=== PATIENT | female | born 1950 | race Caucasian/White ===

== ENCOUNTER 2023-10-22 17:28 | Inpatient (IN) | payer MEDICARE, OTHER ==
--- NOTE | 2023-10-22 18:08 | ED ---
Fall HPI - General Chief Complaint: Fall Stated Complaint: Hip Pain Time Seen by Provider: 10/22/23 17:55 Source: patient, EMS, RN notes reviewed, old records reviewed Mode of arrival: EMS Limitations: no limitations - History of Present Illness Initial Comments: This is a 73-year-old female to the ER after a fall patient had a trip and fall in the bathroom today. Trip and fall on blood thinners with severe left hip pain inability to ambulate and significant pain patient is a poor historian secondary to amount of pain MD Complaint: fall -: hour(s) Fall From: standing When Fall Occurred: [address] Fall Occurred: home Loss of Consciousness: none Prolonged Down Time?: no Symptoms Prior to Fall: none Location: head Location - Extremities: Left: Thigh, Knee Severity: severe Severity scale (1-10): 3 Quality: sharp Context: tripped/slipped, alcohol use Associated Symptoms: denies - Related Data Home Medications Medication Instructions Recorded Confirmed Albuterol Inhaler [Ventolin Hfa 1 - 2 puff INHALATION RT-QID PRN 10/22/23 0 10/22/23 Inhaler] Atorvastatin [Lipitor] 20 mg PO DAILY 10/22/23 10/22/23 Calcium/Magnesium(Unknown Dose) 1 tab PO HS 10/22/23 10/22/23 Cholecalciferol (Vitamin D3) 1,250 mcg PO NAVA 10/22/23 10/22/23 [Vitamin D3 (1250 Mcg = 50,000 Iu)] DULoxetine HCL [Cymbalta] 30 mg PO BID 10/22/23 10/22/23 Gabapentin 600 mg PO BID 10/22/23 10/22/23 Loratadine [Claritin] 10 mg PO DAILY 10/22/23 10/22/23 Losartan Potassium 100 mg PO DAILY 10/22/23 10/22/23 Metoprolol Succinate (ER) [Toprol 25 mg PO DAILY 10/22/23 10/22/23 XL] Pantoprazole Sodium [Protonix] 20 mg PO BID 10/22/23 10/22/23 Psyllium Husk 750mg 750 mg PO DAILY 10/22/23 10/22/23 Rivaroxaban [Xarelto] 20 mg PO HS 10/22/23 10/22/23 Ubidecarenone [Co Q-10] 400 mg PO DAILY 10/22/23 10/22/23 Vitamin B Complex 1 cap PO DAILY 10/22/23 10/22/23 Previous Rx's Medication Instructions Recorded HYDROcodone/APAP 7.5-325MG [[place] 1 - 2 tab PO Q6H PRN #32 tab 10/24/23 7.5-325] Sennosides [Senokot] 2 tab PO DAILY PRN #60 tablet 10/24/23 Benzocaine/Menthol Lozeng [Cepacol 1 each MUCOUS MEM Q4HR PRN lozenge 10/26/23 lozenge] Magnesium Hydroxide [Milk of 2,400 mg PO DAILY PRN ml 10/26/23 Magnesia] hydrALAZINE HCL [Apresoline] 25 mg PO QID PRN tab 10/26/23 Allergies Allergy/AdvReac Type Severity Reaction Status Date / Time pregabalin [From Lyrica] Allergy Rash/Hives Verified 10/22/23 21:18 Review of Systems ROS Statement: Those systems with pertinent positive or pertinent negative responses have been documented in the HPI. ROS Other: All systems not noted in ROS Statement are negative. Past Medical History Past Medical History: Atrial Fibrillation, Hyperlipidemia, Hypertension Past Surgical History: Back Surgery Additional Past Surgical History / Comment(s): lamectomy 2014 approx. thyroidectomy, bilat carpal tunnel, breast biopsy Smoking Status: Former smoker Past Alcohol Use History: Daily Past Drug Use History: None Reported - Past Family History Mother Family Medical History: Neurologic Disorder Additional Family Medical History / Comment(s): Parkinsons Father Family Medical History: Diabetes Mellitus, Hypertension General Exam General appearance: alert, in no apparent distress Head exam: Present: atraumatic, normocephalic, normal inspection Eye exam: Present: normal appearance, PERRL, EOMI. Absent: scleral icterus, conjunctival injection, periorbital swelling ENT exam: Present: normal exam, mucous membranes moist Neck exam: Present: normal inspection. Absent: tenderness, meningismus, lymphadenopathy Respiratory exam: Present: normal lung sounds bilaterally. Absent: respiratory distress, wheezes, rales, rhonchi, stridor Cardiovascular Exam: Present: regular rate, normal rhythm, normal heart sounds. Absent: systolic murmur, diastolic murmur, rubs, gallop, clicks GI/Abdominal exam: Present: soft, normal bowel sounds. Absent: distended, tenderness, guarding, rebound, rigid Extremities exam: Present: normal inspection, full ROM, normal capillary refill. Absent: tenderness, pedal edema, joint swelling, calf tenderness Back exam: Present: normal inspection Neurological exam: Present: alert, oriented X3, CN II-XII intact Psychiatric exam: Present: normal affect, normal mood Skin exam: Present: warm, dry, intact, normal color. Absent: rash Course Vital Signs 10/22/23 10/22/23 17:35 20:36 Temperature 97.9 F Pulse Rate 81 76 Respiratory 20 18 Rate Blood Pressure 164/63 176/67 O2 Sat by Pulse 97 97 Oximetry - Reevaluation(s) Reevaluation #1: 10/22/23 20:25 Records reviewed Reevaluation #2: 10/22/23 20:26 Patient symptoms are unchanged Reevaluation #3: 10/22/23 20:26 Patient informed of results questions answered Reevaluation #4: Was pt. sent in by a medical professional or institution (, PA, LOG SORTER, urgent care, hospital, or group home...) When possible be specific @ -no Did you speak to anyone other than the patient for history (EMS, parent, family, police, friend...)? What history was obtained from this source @ -no Did you review nursing and triage notes (agree or disagree)? Why? @ -agree Are old charts reviewed (outside hosp., previous admission, EMS record, old EKG, old radiological studies, urgent care reports/EKG's, group home records)? Report findings @ -yes Differential Diagnosis (chest pain, altered mental status, abdominal pain women, abdominal pain men, vaginal bleeding, weakness, fever, dyspnea, syncope, headache, dizziness, GI bleed, back pain, seizure, CVA, palpatations, mental health, musculoskeletal)? @ -prior EKG interpreted by me (3pts min.). @ -yes X-rays interpreted by me (1pt min.). @ -yes negative for acute disease CT interpreted by me (1pt min.). @ - U/S interpreted by me (1pt. min.). @ -no What testing was considered but not performed or refused? (CT, X-rays, U/S, labs)? Why? @ -none What meds were considered but not given or refused? Why? @ -none Did you discuss the management of the patient with other professionals (professionals i.e. , PA, LOG SORTER, lab, RT, psych nurse, child protective services social worker, spooling machine operator, teacher, staff air defense officer, social work case manager)? Give summary @ -no Was smoking cessation discussed for >3mins.? @ -no Was critical care preformed (if so, how long)? @ -no Were there social determinants of health that impacted care today? How? (Dany elessness, low income, unemployed, alcoholism, drug addiction, transportation, low edu. Level, literacy, decrease access to med. care, fpc, rehab)? @ -none Was there de-escalation of care discussed even if they declined (Discuss DNR or withdrawal of care, Hospice)? DNR status @ -no What co-morbidities impacted this encounter? (DM, HTN, Smoking, COPD, CAD, Cancer, CVA, ARF, Chemo, Hep., AIDS, mental health diagnosis, sleep apnea, morbid obesity)? @ -none Was patient admitted / discharged? Hospital course, mention meds given and route, prescriptions, significant lab abnormalities, going to OR and other pertinent info. @ - 73 m female will be admitted after a fall with left hip fracture. Admitted yes negative for acute disease Undiagnosed new problem with uncertain prognosis? @ -no Drug Therapy requiring intensive monitoring for toxicity (Heparin, Nitro, Insulin, Cardizem)? @ -no Were any procedures done? @ -no Diagnosis/symptom? @ -Fall with hip fracture Acute, or Chronic, or Acute on Chronic? @ -Acute Uncomplicated (without systemic symptoms) or Complicated (systemic symptoms)? @ -Complicated Side effects of treatment? @ -no Exacerbation, Progression, or Severe Exacerbation? @ -exacerbation Poses a threat to life or bodily function? How? (Chest pain, [place], [place], pneumonia, PE, COPD, DKA, ARF, appy, cholecystitis, CVA, Diverticulitis, Homicidal, Suicidal, threat to staff... and all critical care pts) @ -yes with significant fall and fracture 8 - Consultations Consultation #1: Spoke with orthopedics who agreed to admit this patient Medical Decision Making - Medical Decision Making 73 m female will be admitted after a fall with left hip fracture. - Lab Data Result diagrams: 10/26/23 06:29 10/23/23 05:57 Lab Results 10/22/23 10/22/23 10/22/23 Range/Units 18:17 18:17 18:17 WBC 11.9 H (3.8-10.6) k/uL RBC 3.85 (3.80-5.40) m/uL Hgb 12.0 (11.4-16.0) gm/dL Hct 36.7 (34.0-46.0) % MCV 95.6 (80.0-100.0) fL MCH 31.3 (25.0-35.0) pg MCHC 32.8 (31.0-37.0) g/dL RDW 12.2 (11.5-15.5) % Plt Count 267 (150-450) k/uL MPV 7.3 Neutrophils % 72 % Lymphocytes % 20 % Monocytes % 5 % Eosinophils % 3 % Basophils % 0 % Neutrophils # 8.6 H (1.3-7.7) k/uL Lymphocytes # 2.3 (1.0-4.8) k/uL Monocytes # 0.6 (0-1.0) k/uL Eosinophils # 0.3 (0-0.7) k/uL Basophils # 0.0 (0-0.2) k/uL PT 11.4 (10.0-12.5) sec INR 1.0 (<1.2) APTT 20.3 L (22.0-30.0) sec Sodium 138 (137-145) mmol/L Potassium 3.4 L (3.5-5.1) mmol/L Chloride 107 (98-107) mmol/L Carbon Dioxide 24 (22-30) mmol/L Anion Gap 7 mmol/L BUN 19 H (7-17) mg/dL Creatinine 0.53 (0.52-1.04) mg/dL Est GFR (CKD-EPI)AfAm >90 (>60 ml/min/1.73 sqM) Est GFR (CKD-EPI)NonAf >90 (>60 ml/min/1.73 sqM) Glucose 117 H (74-99) mg/dL Plasma Lactic Acid Ashok (0.7-2.0) mmol/L Calcium 8.9 (8.4-10.2) mg/dL Phosphorus 3.8 (2.5-4.5) mg/dL Magnesium 1.8 (1.6-2.3) mg/dL Total Bilirubin 0.5 (0.2-1.3) mg/dL AST 28 (14-36) U/L ALT 30 (4-34) U/L Alkaline Phosphatase 68 (38-126) U/L Troponin I (0.000-0.034) ng/mL Total Protein 6.4 (6.3-8.2) g/dL Albumin 4.0 (3.5-5.0) g/dL Serum Alcohol <10 mg/dL 10/22/23 10/22/23 Range/Units 18:17 18:17 WBC (3.8-10.6) k/uL RBC (3.80-5.40) m/uL Hgb (11.4-16.0) gm/dL Hct (34.0-46.0) % MCV (80.0-100.0) fL MCH (25.0-35.0) pg MCHC (31.0-37.0) g/dL RDW (11.5-15.5) % Plt Count (150-450) k/uL MPV Neutrophils % % Lymphocytes % % Monocytes % % Eosinophils % % Basophils % % Neutrophils # (1.3-7.7) k/uL Lymphocytes # (1.0-4.8) k/uL Monocytes # (0-1.0) k/uL Eosinophils # (0-0.7) k/uL Basophils # (0-0.2) k/uL PT (10.0-12.5) sec INR (<1.2) APTT (22.0-30.0) sec Sodium (137-145) mmol/L Potassium (3.5-5.1) mmol/L Chloride (98-107) mmol/L Carbon Dioxide (22-30) mmol/L Anion Gap mmol/L BUN (7-17) mg/dL Creatinine (0.52-1.04) mg/dL Est GFR (CKD-EPI)AfAm (>60 ml/min/1.73 sqM) Est GFR (CKD-EPI)NonAf (>60 ml/min/1.73 sqM) Glucose (74-99) mg/dL Plasma Lactic Acid Ashok 1.6 (0.7-2.0) mmol/L Calcium (8.4-10.2) mg/dL Phosphorus (2.5-4.5) mg/dL Magnesium (1.6-2.3) mg/dL Total Bilirubin (0.2-1.3) mg/dL AST (14-36) U/L ALT (4-34) U/L Alkaline Phosphatase (38-126) U/L Troponin I <0.012 (0.000-0.034) ng/mL Total Protein (6.3-8.2) g/dL Albumin (3.5-5.0) g/dL Serum Alcohol mg/dL - EKG Data -: EKG Interpreted by Me (EKG is sinus 77 AL 162 QRS 93 QTc 441) - Radiology Data Radiology results: report reviewed (CT brain C-spine chest x-ray pelvis x-ray positive for left hip fracture), image reviewed Disposition Clinical Impression: Fall, Closed left hip fracture Disposition: ADMITTED IP TO THIS [facility] Condition: Stable Is patient prescribed a controlled substance at d/c from ED?: No Time of Disposition: 19:30
[2023-10-22 18:34] LABS: Basophils % (A) 0 %; Eosinophils # (A) 0.3 k/uL (0-0.7); Eosinophils % (A) 3 %; HCT 36.7 % (34.0-46.0); Lymphocytes # (A) 2.3 k/uL (1.0-4.8); Lymphocytes % (A) 20 %; MCH 31.3 pg (25.0-35.0); MCHC 32.8 g/dL (31.0-37.0); MCV 95.6 fL (80.0-100.0); Mean Platelet Volume 7.3; Monocytes # (A) 0.6 k/uL (0-1.0); Monocytes % (A) 5 %; Neutrophils # (A) 8.6 k/uL (1.3-7.7); Neutrophils % (A) 72 %; Platelet Count 267 k/uL (150-450); RBC 3.85 m/uL (3.80-5.40); RDW 12.2 % (11.5-15.5); WBC 11.9 k/uL (3.8-10.6)
[2023-10-22] MEDS: SODIUM CHLORIDE 0.9% 500 ML 500 ML IV STA (18:45)
[2023-10-22] MEDS: HYDROmorphone 1 MG/ML 1 ML SYRINGE IVP STA (18:45)
[2023-10-22 18:46] LABS: ALT 30 U/L (4-34); AST 28 U/L (14-36); African American GFR (CKD) >90 (>60 ml/min/1.73 sqM); Alcohol <10 mg/dL; Alkaline Phosphatase 68 U/L (38-126); Anion Gap 7 mmol/L; Blood Urea Nitrogen 19 mg/dL (7-17); Calcium 8.9 mg/dL (8.4-10.2); Carbon Dioxide 24 mmol/L (22-30); Chloride 107 mmol/L (98-107); Glucose 117 mg/dL (74-99); Magnesium 1.8 mg/dL (1.6-2.3); Non-African American GFR(CKD) >90 (>60 ml/min/1.73 sqM); Phosphorus 3.8 mg/dL (2.5-4.5); Potassium 3.4 mmol/L (3.5-5.1); Sodium 138 mmol/L (137-145); Total Bilirubin 0.5 mg/dL (0.2-1.3); Total Protein 6.4 g/dL (6.3-8.2)
[2023-10-22 18:52] LABS: Prothrombin Time 11.4 sec (10.0-12.5)
[2023-10-22 18:56] LABS: Partial Thromboplastin Time 20.3 sec (22.0-30.0)
--- NOTE | 2023-10-22 20:08 | CT ---
EXAMINATION TYPE: CT brain cspine wo con CT DLP: 1458 mGycm, Automated exposure control for dose reduction was used. DATE OF EXAM: 10/22/2023 7:32 PM COMPARISON: None. CLINICAL INDICATION:Female, 73 years old with history of fall; Fall, left hip and neck pain TECHNIQUE: Brain: Multiple axial CT images of the brain were obtained without IV contrast. Cspine: Axial CT images from the skull base to the inferior aspect of T2 we obtained without intraven ous contrast. Coronal and sagittal reformatted images were also reviewed. FINDINGS: Brain: Extra-axial spaces: No abnormal extra-axial fluid collections. Ventricular system: Within normal limits Cerebral parenchyma: No acute intraparenchymal hemorrhage or mass effect. The orta-white junction is well differentiated. Cerebellum: Unremarkable. Mass effect: No evidence of midline shift. Intracranial vasculature: Atherosclerotic calcifications of the intracranial vessels. Soft tissues: Normal. Calvarium/osseous structures: No depressed skull fracture. Paranasal sinuses and mastoid air cells: Clear. Visualized orbits: Orbital contents are intact. Cervical spine: Fracture: None. Osseous structures: Multilevel degenerative disc disease changes with endplate spurring and disc oste ophyte complex's. Vertebral alignment: Within normal limits. Spinal canal/Neural Foramina: Disc osteophyte complexes at C4-C5 and C5-C6 with at least mild spinal canal stenosis. No evidence for significant neural foraminal stenosis. Neck soft tissues: Prevertebral soft tissues are within normal limits. Other: The airway is patent. The lung apices are clear. IMPRESSION: 1. No acute intracranial process. 2. No evidence of cervical spine fracture. 3. Mild multilevel degenerative disc disease.
[2023-10-22] MEDS ORDERED: NALOXONE 0.4 MG/ML 1 ML VIAL IV PRN (20:09)
--- NOTE | 2023-10-22 20:09 | XR ---
EXAMINATION TYPE: XR chest 1V portable DATE OF EXAM: 10/22/2023 7:43 PM CLINICAL INDICATION:Female, 73 years old with history of fall; [facility] COMPARISON: None TECHNIQUE: XR chest 1V portable Frontal view of the chest. FINDINGS: Lungs/Pleura: There is no evidence of pleural effusion, focal consolidation, or pneumothorax. Pulmonary vascularity: Unremarkable. Heart/mediastinum: Cardiomediastinal silhouette is unremarkable. Musculoskeletal: No acute osseous pathology. Other findings: None IMPRESSION: No acute cardiopulmonary disease/process.
--- NOTE | 2023-10-22 20:11 | XR ---
EXAMINATION TYPE: XR pelvis AP view, XR Hip Complete LT DATE OF EXAM: 10/22/2023 7:43 PM CLINICAL INDICATION:Female, 73 years old with history of fall; [facility] COMPARISON: None TECHNIQUE: The pelvis was examined in a single projection. Frontal and lateral views of the left hip. FINDINGS/IMPRESSION: 1. Acute left intertrochanteric comminuted fracture with mild displacement. 2. Severe degeneration changes of the hips bilaterally with osteophyte formation and joint space nicolás rowing.
[2023-10-22] MEDS: HYDROmorphone 1 MG/ML 1 ML SYRINGE IVP PRN (20:23)
[2023-10-22] MEDS: SODIUM CHLORIDE 0.9% 1,000 ML IV SCH (20:32)
[2023-10-22] MEDS: ONDANSETRON 4 MG/2 ML VIAL IVP PRN (21:41)
[2023-10-22] MEDS ORDERED: ALBUTEROL NEBULIZED 2.5 MG/3 ML INHALATION PRN (22:21)
[2023-10-22] MEDS: hydrALAZINE HCL 25 MG TAB PO PRN (23:06)
[2023-10-23] MEDS: PANTOPRAZOLE 40 MG TABLET PO SCH (06:16)
[2023-10-23] MEDS ORDERED: NON FORMULARY DRUG (Ubidecarenone [Co Q-10] 400 MG Capsule) PO SCH (09:00)
[2023-10-23] MEDS ORDERED: NON FORMULARY DRUG (Vitamin B Complex [Vitamin B Complex] 1 EACH Capsule) PO SCH (09:00)
--- NOTE | 2023-10-23 09:06 | P.HPOR ---
History of Present Illness H&P Date: 10/23/23 Chief Complaint: Left hip fracture s/p fall The patient is a 73-year-old female with a past medical history including A. fib, hypertension and hyperlipidemia, who presented to the emergency department after sustaining a slip and fall out of the bathtub at home yesterday. She was unable to bear weight on the left side and EMS brought her to the emergency department at [facility] for further evaluation. She was found to have a left intertrochanteric femur fracture on x-ray and she was admitted to orthopedics for further care. The patient states that she does live alone and does not use any ambulatory aids. Internal medicine has been consulted for surgical clearance. The patient does take Xarelto for A. fib and her last dose was on 10/21/2023. Review of Systems Constitutional: Denies chills, Denies fatigue, Denies fever Cardiovascular: Denies chest pain, Denies shortness of breath Respiratory: Denies cough Gastrointestinal: Denies diarrhea, Denies nausea, Denies vomiting Musculoskeletal: left: hip pain, hip stiffness, hip swelling Past Medical History Past Medical History: Atrial Fibrillation, Hyperlipidemia, Hypertension History of Any Multi-Drug Resistant Organisms: None Reported Past Surgical History: Back Surgery Additional Past Surgical History / Comment(s): lamectomy 2013 approx. thy roidectomy, bilat carpal tunnel, breast biopsy Past Anesthesia/Blood Transfusion Reactions: No Reported Reaction Past Psychological History: Anxiety, Depression Additional Psychological History / Comment(s): Changed from cymbalta to celexa- been on one week Smoking Status: Former smoker Past Alcohol Use History: Daily Past Drug Use History: None Reported - Past Family History Mother Family Medical History: Neurologic Disorder Additional Family Medical History / Comment(s): Parkinsons Father Family Medical History: Diabetes Mellitus, Hypertension Medications and Allergies Home Medications Medication Instructions Recorded Confirmed Type Albuterol Inhaler [Ventolin Hfa 1 - 2 puff INHALATION RT-QID PRN 10/22/23 10/22/23 History Inhaler] Atorvastatin [Lipitor] 20 mg PO DAILY 10/22/23 10/22/23 History Calcium/Magnesium(Unknown Dose) 1 tab PO HS 10/22/23 10/22/23 History Cholecalciferol (Vitamin D3) 1,250 mcg PO NAVA 10/22/23 10/22/23 History [Vitamin D3 (1250 Mcg = 50,000 Iu)] DULoxetine HCL [Cymbalta] 30 mg PO BID 10/22/23 10/22/23 History Gabapentin 600 mg PO BID 10/22/23 10/22/23 History Loratadine [Claritin] 10 mg PO DAILY 10/22/23 10/22/23 History Losartan Potassium 100 mg PO DAILY 10/22/23 10/22/23 History Metoprolol Succinate (ER) [Toprol 25 mg PO DAILY 10/22/23 10/22/23 History Xl] Pantoprazole Sodium [Protonix] 20 mg PO BID 10/22/23 10/22/23 History Psyllium Husk 750mg 750 mg PO DAILY 10/22/23 10/22/23 History Rivaroxaban [Xarelto] 20 mg PO HS 10/22/23 10/22/23 History Ubidecarenone [Co Q-10] 400 mg PO DAILY 10/22/23 10/22/23 History Vitamin B Complex 1 cap PO DAILY 10/22/23 10/22/23 History Allergies Allergy/AdvReac Type Severity Reaction Status Date / Time pregabalin [From Lyrica] Allergy Rash/Hives Verified 10/22/23 21:18 Physical Examination The patient is a 73 year old female that is no acute distress. She is alert and oriented x3. The patient's head is normocephalic and atraumatic. Exam of the cervical spine reveals no pain upon palpation or range of motion. Exam of the bilateral upper extremities reveal no obvious deformities or pain upon range of motion. Exam of the right lower extremity reveals no pain upon palpation. Exam of the left lower extremity reveals a externally rotated and shortened leg. No pain upon palpation to the lateral hip. There is pain upon logrolling and any range of motion of the leg. Bilateral calves are soft and nontender. Patient has good foot and ankle motion bilaterally. Neurological and circulatory status is intact. Results x-ray of the left hip and pelvis reveals a intertrochanteric femur fracture. - Labs Labs: Abnormal Lab Results - Last 24 Hours (Table) 10/22/23 10/22/23 10/22/23 Range/Units 18:17 18:17 18:17 WBC 11.9 H (3.8-10.6) k/uL Neutrophils # 8.6 H (1.3-7.7) k/uL APTT 20.3 L (22.0-30.0) sec Potassium 3.4 L (3.5-5.1) mmol/L BUN 19 H (7-17) mg/dL Glucose 117 H (74-99) mg/dL H & H 10/22/23 Range/Units 18:17 Hgb 12.0 (11.4-16.0) gm/dL Hct 36.7 (34.0-46.0) % Coagulation 10/22/23 Range/Units 18:17 INR 1.0 (<1.2) Result Diagrams: 10/22/23 18:17 10/22/23 18:17 Assessment and Plan (1) Closed left hip fracture Current Visit: Yes Status: Acute Code(s): S72.002A - FRACTURE OF UNSP PART OF NECK OF LEFT FEMUR, INIT SNOMED Code(s): 154691059 (2) Fall Current Visit: Yes Status: Acute Code(s): W19.XXXA - UNSPECIFIED FALL, INITIAL ENCOUNTER SNOMED Code(s): 8036044 (3) Atrial fibrillation Current Visit: Yes Status: Acute Code(s): I48.91 - UNSPECIFIED ATRIAL FIBRILLATION SNOMED Code(s): 50336730 (4) Hypertension Current Visit: Yes Status: Acute Code(s): I10 - ESSENTIAL (PRIMARY) HYPERTENSION SNOMED Code(s): 86869875 (5) Hyperlipidemia Current Visit: Yes Status: Acute Code(s): E78.5 - HYPERLIPIDEMIA, UNSPECIFIED SNOMED Code(s): 96070236 Plan: The clinical and x-ray findings were discussed with the patient. The case was discussed at length with Dr. Valladares. Treatment options were discussed and surgical intervention is recommended. We discussed the surgical plan as well as the expected postoperative course. Risks and benefits were reviewed including (but not limited to) the risks of infection, bleeding, blood clots, delayed or nonunion, anesthesia-related complications and possible need for additional surgery. Questions were invited and answered. The patient expressed understanding and wishes to proceed with surgery. The patient will be kept on bedrest. Continue PRN pain management. NPO today. She is scheduled for a closed reduction with insertion of cephalomedullary nail of the left hip later this afternoon. We will await pre-op clearance from internal medicine.
[2023-10-23] MEDS: LORATADINE 10 MG TAB PO SCH (09:51)
[2023-10-23] MEDS: ATORVASTATIN 20 MG TAB PO SCH (09:51)
[2023-10-23] MEDS: GABAPENTIN 300 MG CAP PO SCH (09:51)
[2023-10-23] MEDS: DULoxetine HCL 30 MG CAPSULE.DR PO SCH (09:51)
[2023-10-23] MEDS: LOSARTAN 50 MG TAB PO SCH (09:51)
[2023-10-23] MEDS: METOPROLOL SUCCINATE (ER) 25 MG TAB.ER.24H PO SCH (09:51)
[2023-10-23 10:37] LABS: HCT 32.4 % (37.2-46.3); HGB 10.5 g/dL (12.0-15.0); MCH 31.1 pg (27.0-32.0); MCHC 32.4 g/dL (32.0-37.0); MCV 95.9 FL (80.0-97.0); Mean Platelet Volume 9.8 FL (9.5-12.2); NRBC Per 100 WBC 0 X 10*3/uL (0.00-0.01); Platelet Count 239 X 10*3/uL (140-440); RBC 3.38 X 10*6/uL (4.10-5.20); RDW 12.5 % (11.5-14.5); WBC 10.84 X 10*3/uL (4.50-10.00)
[2023-10-23 10:38] LABS: Basophils # (A) 0.03 X 10*3/uL (0.00-0.10); Basophils % (A) 0.3 %; Eosinophils # (A) 0.01 X 10*3/uL (0.04-0.35); Eosinophils % (A) 0.1 %; Lymphocytes # (A) 2.14 X 10*3/uL (0.90-5.00); Lymphocytes % (A) 19.7 %; Monocytes # (A) 0.79 X 10*3/uL (0.20-1.00); Monocytes % (A) 7.3 %; Neutrophils # (A) 7.84 X 10*3/uL (1.80-7.70); Neutrophils % (A) 72.3 %
[2023-10-23 10:49] LABS: ALT 28 U/L (8-44); AST 20 U/L (13-35); Albumin 4.2 g/dL (3.8-4.9); Alkaline Phosphatase 59 U/L (41-126); BUN/Creat Ratio 28.33 Ratio (12.00-20.00); Calcium 8.7 mg/dL (8.7-10.3); Carbon Dioxide 24.1 mmol/L (21.6-31.8); Chloride 105 mmol/L (96-109); Glucose 127 mg/dL (70-110); Phosphorus 4.8 mg/dL (2.4-5.1); Potassium 4.2 mmol/L (3.5-5.5); Sodium 139 mmol/L (135-145); Total Bilirubin 0.4 mg/dL (0.3-1.2); Total Protein 6.2 g/dL (6.2-8.2)
[2023-10-23] MEDS ORDERED: HYDROmorphone 0.5 MG/0.5 ML SYRINGE IVP PRN ×2 (13:26)
[2023-10-23] MEDS ORDERED: NALOXONE 0.4 MG/ML 1 ML VIAL IV PRN (13:26)
[2023-10-23] MEDS ORDERED: MAGNESIUM HYDROXIDE 2,400 MG/30 ML CUP PO PRN (13:26)
[2023-10-23] MEDS: ONDANSETRON 4 MG/2 ML VIAL IVP PRN (13:53)
[2023-10-23] MEDS: IV FLUID CONTINUATION 1,000 ML IV ONE (13:53)
[2023-10-23] MEDS: SCOPOLAMINE 1 MG/72 HR PATCH TRANSDERM ONE (14:11)
[2023-10-23] MEDS ORDERED: TRANEXAMIC 1,000 MG/100ML-NACL 1,000 MG in SALINE 1 100ML.BAG IVPB PRN (14:29)
[2023-10-23] MEDS ORDERED: PROPOFOL 10 MG/ML 20 ML VIAL IV ONE (15:09)
[2023-10-23] MEDS ORDERED: MIDAZOLAM 2 MG/2 ML VIAL ONE (15:09)
[2023-10-23] MEDS ORDERED: fentaNYL (PF) 50 MCG/ML 2 ML AMP ONE (15:09)
[2023-10-23] MEDS ORDERED: SUCCINYLCHOLINE CHLORIDE 200 MG/10 ML VIAL IV ONE (15:09)
[2023-10-23] MEDS ORDERED: ePHEDrine 50 MG/ML 1 ML VIAL ONE (15:09)
[2023-10-23] MEDS ORDERED: ONDANSETRON 4 MG/2 ML VIAL ONE (15:09)
[2023-10-23] MEDS ORDERED: TRANEXAMIC 1,000 MG/100ML-NACL PREMIX BAG ONE (15:09)
[2023-10-23] MEDS ORDERED: LIDOCAINE 1% INJ 10MG/ML (20 ML MDV) ONE (15:09)
[2023-10-23] MEDS ORDERED: ROCURONIUM 10 MG/ML (5 ML VIAL) IV ONE (15:09)
[2023-10-23] MEDS ORDERED: NEOSTIGMINE 1 MG/ML 10 ML VIAL ONE (15:09)
[2023-10-23] MEDS ORDERED: GLYCOPYRROLATE 0.2 MG/ML 2 ML VIAL ONE (15:09)
[2023-10-23] MEDS ORDERED: DEXAMETHASONE SOD PHOSPHATE 4 MG/ML 1 ML VIAL ONE (15:09)
[2023-10-23] MEDS: SODIUM CHLORIDE 0.9% 50 ML with ceFAZolin 2,000 MG IV ONE (15:13)
[2023-10-23] MEDS: LACTATED RINGERS 1,000 ML IV ONE (16:04)
--- NOTE | 2023-10-23 16:18 | P.OP ---
Date of Procedure: 10/23/23 Preoperative Diagnosis: Four-part displaced intertrochanteric fracture left hip Postoperative Diagnosis: four-part intertrochanteric fracture left hip Procedure(s) Performed: closed reduction and intramedullary nailing left intratrochanteric hip fracture Implants: [employer] Intertan nail 125, 11.5 mm x 18 cm. [employer] Intertan integrated-interlocking lag screw, 100 mm lag screw, 95 mm compression screw. [employer] L-P screw, 5.0 mm x 35 mm. Anesthesia: GETA Surgeon: Pierre Barclay Estimated Blood Loss (ml): 100 Pathology: none sent Condition: stable Disposition: PACU Indications for Procedure: this is a 73-year-old female who sustained a ground-level fall at home. X-rays demonstrated a displaced 4 part intratrochanteric fracture of the left hip. After discussing the surgical and nonsurgical treatment options at length with her, I recommended a close reduction and intramedullary nailing of the left hip. Informed consent was obtained. Operative Findings: the operative findings are consistent with a displaced 4 part intratrochanteric fracture of the left hip Description of Procedure: The patient was seen in the preoperative area, consent was reviewed, and the operative site was marked with a skin marker. The surgical procedure was discussed at length with both the patient and the family at the bedside. All questions were answered to the best of my ability. The patient was brought to the operating room and placed on the fracture table. Anesthesia was administered by the anesthesia department. 2 g of Ancef were administered intravenously. The patient was placed supine on the fracture table with the fractured extremity in traction boot. The other extremity was placed in a well leg rocha and the bony prominences were well padded. A universal timeout was then performed which confirmed the patient's name, surgical site, ALLERGIES, and consent. Fracture reduction was performed with a traction and abduction maneuver which was confirmed with fluoroscopy, both AP and lateral views.. After reduction was performed, the extremity was then prepped with ChloraPrep solution and draped in the usual sterile fashion. Utilizing fluoroscopy to identify the tip of the greater trochanter, a 3 cm longitudinal incision was made just proximal to the greater trochanter. Incision was carried through the fascia to the tip of the greater trochanter. Utilizing a curved awl, the entry point was created at the tip of the greater trochanter and centralized in the AP and lateral planes. These locations were confirmed by fluoroscopy. A guidewire was then inserted down the medullary canal. Sequentially reaming of the femur was performed to 13 mm distally and 17 mm proximally with the channel reamer. After reaming, appropriate size nail was inserted over the guidewire. The nail was inserted to the appropriate depth and the guidewire was removed. Placement of the gabino was confirmed with both AP and lateral fluoroscopic views. The lag screw drill sleeve was placed in the jig and a small skin incision was made on the lateral aspect of the leg and the lag screw drill sleeve was locked into the guide. The 3.2 mm guide pin sleeve was inserted through the lag screw drill sleeve down to bone. A 3.2 mm distally threaded guidewire was inserted through the guide pin sleeve. The guidewire was inserted in the desired position in the femoral head, both anterior and posterior. The lag screw length cage was inserted over the guidepin to the back of the lag screw drill sleeve. Lag screw length was then measured from the cage. Next, the 7.0 mm compression screw starter drill was inserted in the lag screw drill sleeve beneath the guidepin. The compression screw starter drill was advanced under power until it abutted the back and of the lag screw drill sleeve. The 7.0 mm compression screw drill was inserted through the lag screw drill sleeve into the hole created by the compression screw starter drill. This was advanced under fluoroscopy to a depth 5 mm less and the measurement taken for the guidepin. The compression screw drill was removed and the antirotation bar was inserted into the same hole. The 3.2 mm guide pin sleeve was then removed from the drill guide. The lag screw drill was then inserted to a depth that was measured by the lag screw gauge. This was done under fluoroscopy. The lag screw was inserted over the guidewire to the appropriate depth using fluoroscopy. Traction was then released. The antirotation bar was then removed and the compression screw was advanced through the lag screw drill sleeve beneath the lag screw. This was advanced to the appropriate compression was achieved. The proximal drill guide was then removed and the distal drill guide was then inserted in the jig. Skin incision was made down to bone and the distal drill guide was then placed. Distal hole was then drilled with a 4.0 mm drill and measured to the appropriate depth. Distal screw was then placed. The entire assembly was then removed and final fluoroscopic x-rays were obtained. The wounds were then irrigated copiously with saline solution. Fascia was closed with 0-Vicryl. Subcutaneous tissues were closed with 2-0 Vicryl and the skin was closed with ramon. Sterile dressings were applied. The patient was transported to the recovery room in stable condition.
[2023-10-23] MEDS: HYDROmorphone 0.5 MG/0.5 ML SYRINGE IVP ONE ×4 (16:37→16:59)
--- NOTE | 2023-10-23 17:25 | FL ---
EXAMINATION TYPE: FL guidance operating room, XR Hip Limited LT Intraoperative/procedural fluoroscopi c services were provided. Total fluoroscopy time is 58 seconds with a total of 2 submitted images to PACS. Please see the operative/procedural note for further details. DAP: 7.8355 Gycm2
--- NOTE | 2023-10-23 17:42 | XR ---
EXAMINATION TYPE: XR Hip Limited LT DATE OF EXAM: 10/23/2023 Comparison: None Clinical History: 73-year-old female Status post hip surgery, assess surgical alignment Findings: Interval placement of a retrograde intramedullary nail with screw fixation. Displaced fragment of the lesser trochanter measuring 4.2 cm. Alignment is anatomic. Soft tissue air related to recent operati on. Mild degenerative spurring at the left hip. Lateral hip skin ramon. Impression: Uncomplicated postoperative appearance proximal left femur IT fracture fixation.
[2023-10-23] MEDS: SODIUM CHLORIDE 0.9% 1,000 ML IV SCH (17:56)
[2023-10-23] MEDS ORDERED: MAGNESIUM PO SCH (21:00)
[2023-10-23] MEDS ORDERED: CALCIUM PO SCH (21:00)
[2023-10-23] MEDS: SENNOSIDES-DOCUSATE SODIUM 1 EACH TAB PO SCH (21:20)
[2023-10-23] MEDS: HYDROcodone/APAP 7.5-325MG 1 EACH TAB PO PRN (22:33)
[2023-10-23] MEDS: BENZOCAINE/MENTHOL LOZENG 1 EACH LOZENGE MUCOUS MEM PRN (22:34)
[2023-10-24] MEDS: HYDROmorphone 0.5 MG/0.5 ML SYRINGE IVP PRN (01:14)
--- NOTE | 2023-10-24 06:47 | P.CONS ---
History of Present Illness - Reason for Consult Consult date: 10/22/23 - Chief Complaint Left hip fracture post fall. 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 No other visual injury at the time can be seen she is on anticoagulation for A-fib with no major hematoma or bleed. Ended up coming to the emergency department where was seen and evaluated with her full study including head and cervical spine CT shows no acute intracranial process no evidence of cervical spine fracture but mild multilevel degenerative disc disease. Chest x-ray shows no acute cardiopu lmonary disease or process at the time, x-ray of the hip shows acute left intratrochanteric communicated fracture with mild displacement and severe degenerative change of the hip bilaterally with osteophyte formation and joint space narrowing. Patient apparently was admitted to Dr. Valladares service will be seen by orthopedic for possible surgery she is on active anticoagulation which will be held for the next 24 hours before able to go for surgery. REVIEW OF SYSTEMS: CONSTITUTIONAL: Well-developed no acute respiratory distress. EYES: No icterus sclerae, no conjunctivitis. EARS, NOSE, MOUTH, THROAT, and FACE: No sore throat, lymphadenopathy, carotid bruits or deformity. RESPIRATORY: Mild shortness of breath no cough or wheezes. CARDIOVASCULAR: Positive PND orthopnea palpitation. GASTROINTESTINAL: No Abd pain, Nausea or vomiting, no Diarrhea or constipation, No GI Bleed, no distention or masses. GENITOURINARY: Negative for Hematuria or UTI, no kidney stones. INTEGUMENT/BREAST: Generalized arthralgia and myalgia. HEMATOLOGIC/LYMPHATIC: Negative for bleed or purpura. MUSCULOSKELTAL: Positive for arthritis. Left hip has external rotation and significant pain and discomfort. NEURLOGICAL: No LOC, Sz or syncope, blurred vision dizziness or abnormality.. BEHAVIORAL/PSYCH: Negative. ENDOCRINE: Negative. PHYSICAL EXAMINATION: General Appearance: Alert, cooperative, no distress, appears stated age. Neck HEENT: Supple, no lymphadenopathy, no thyroid enlargement, no carotid bruits. Lungs: Decreased breath sound bilaterally with fine rhonchi no crackles or wheezes. Chest Wall: Decreased with deep inspiration no tenderness and no deformity was found on exam, no costochondral pain or discomfort. Heart: Regular rate and rhythm, S1, S2, positive S3 no JVD. Normal, no murmur, rub or gallop. Back: Symmetric, no curvature, ROM normal, no CVA tenderness. Abdomen: Soft, non-tender, bowel sounds active all four quadrants, no masses, no organomegaly. Extremities: Generalized arthralgia all over left hip has significant external rotation shorter leg compared to the other side significant pain and discomfort in the groin area. Pulses: 2+ and symmetric. Skin: Skin color, texture, tugor normal, no rashes or lesions. Neurologic: Alert oriented x3 cranial nerves II through XII intact, no motor deficit, no abnormal balance or gait. ASSESSMENT AND PLAN: _Left hip fracture post fall: Patient will require surgery without ORIF for hemiarthroplasty to be determined by Ortho, she is on anticoagulation need to be off 48 hours before able to go for surgery. Status of her EKG looks perfectly fine at this point patient has no absolute contraindication for surgery resume her metoprolol and losartan. _History of A-fib she is not in active A-fib with her current EKG but remain on metoprolol and Xarelto 20 mg a day resume medication. _Hypertension: Continue hydralazine 25 mg every 6 hours as needed for systolic above 160 continue losartan 100 mg daily and Toprol-XL 25 mg a day. _Hyperlipidemia: Continue Lipitor 20 mg a day. _Chronic depression has been on Cymbalta 30 mg twice a day. _Hyperlipidemia: Resume atorvastatin 20 mg a day. _Chronic neuropathy: Has been on gabapentin 600 mg twice a day. _Mild electrolyte imbalance with mild hypokalemia replacement therapy will be done. _Hyperglycemia with no official diagnosis of diabetes Accu-Chek with sliding scales will be done. _Mild COPD/reactive airway: Still on rescue inhaler will continue updraft treatment and O2 on as-needed basis. _DVT prophylaxis: Patient will continue on Xarelto. _GI prophylaxis: Patient be on PPI daily. CODE STATUS: Full code. Dr. Valladares thank you much for the consult more than happy to see this patient along with you in the hospital if I can be any further help to please let me know. Past Medical History Past Medical History: Atrial Fibrillation, Hyperlipidemia, Hypertension History of Any Multi-Drug Resistant Organisms: None Reported Past Surgical History: Back Surgery Additional Past Surgical History / Comment(s): lamectomy 2014 approx. thyroidectomy, bilat carpal tunnel, breast biopsy Past Anesthesia/Blood Transfusion Reactions: No Reported Reaction Past Psychological History: Anxiety, Depression Additional Psychological History / Comment(s): Changed from cymbalta to celexa- been on one week Smoking Status: Former smoker Past Alcohol Use History: Daily Past Drug Use History: None Reported - Past Family History Mother Family Medical History: Neurologic Disorder Additional Family Medical History / Comment(s): Parkinsons Father Family Medical History: Diabetes Mellitus, Hypertension Medications and Allergies Home Medications Medication Instructions Recorded Confirmed Type Albuterol Inhaler [Ventolin Hfa 1 - 2 puff INHALATION RT-QID PRN 10/22/23 10/22/23 History Inhaler] Atorvastatin [Lipitor] 20 mg PO DAILY 10/22/23 10/22/23 History Calcium/Magnesium(Unknown Dose) 1 tab PO HS 10/22/23 10/22/23 History Cholecalciferol (Vitamin D3) 1,250 mcg PO NAVA 10/22/23 10/22/23 History [Vitamin D3 (1250 Mcg = 50,000 Iu)] DULoxetine HCL [Cymbalta] 30 mg PO BID 10/22/23 10/22/23 History Gabapentin 600 mg PO BID 10/22/23 10/22/23 History Loratadine [Claritin] 10 mg PO DAILY 10/22/23 10/22/23 History Losartan Potassium 100 mg PO DAILY 10/22/23 10/22/23 History Metoprolol Succinate (ER) [Toprol 25 mg PO DAILY 10/22/23 10/22/23 History Xl] Pantoprazole Sodium [Protonix] 20 mg PO BID 10/22/23 10/22/23 History Psyllium Husk 750mg 750 mg PO DAILY 10/22/23 10/22/23 History Rivaroxaban [Xarelto] 20 mg PO HS 10/22/23 10/22/23 History Ubidecarenone [Co Q-10] 400 mg PO DAILY 10/22/23 10/22/23 History Vitamin B Complex 1 cap PO DAILY 10/22/23 10/22/23 History Allergies Allergy/AdvReac Type Severity Reaction Status Date / Time pregabalin [From Lyrica] Allergy Rash/Hives Verified 10/22/23 21:18 Physical Exam Vitals: Vital Signs Temp Pulse Resp BP Pulse Ox 10/22/23 20:36 76 18 176/67 97 10/22/23 17:35 97.9 F 81 20 164/63 97 Intake and Output 10/22/23 10/22/23 10/23/23 14:59 22:59 06:59 Other: Weight 81.647 kg Results CBC & Chem 7: 10/22/23 18:17 10/22/23 18:17 Labs: Abnormal Lab Results - Last 24 Hours (Table) 10/22/23 10/22/23 10/22/23 Range/Units 18:17 18:17 18:17 WBC 11.9 H (3.8-10.6) k/uL Neutrophils # 8.6 H (1.3-7.7) k/uL APTT 20.3 L (22.0-30.0) sec Potassium 3.4 L (3.5-5.1) mmol/L BUN 19 H (7-17) mg/dL Glucose 117 H (74-99) mg/dL
--- NOTE | 2023-10-24 09:48 | P.PN ---
Subjective Progress Note Date: 10/24/23 This is a 73-year-old fe male who is status post closed reduction and intramedullary nailing of left intertrochanteric hip fracture. This is postoperative day #1 and patient is seen and evaluated at bedside with Dr. Pierre Barclay. Patient states that she is quite painful today and has not been able to work with physical therapy yet. Objective - Vital Signs Vital signs: Vital Signs Temp 98.2 F 10/24/23 01:12 Pulse 87 10/24/23 01:12 Resp 16 10/24/23 01:12 BP 140/49 10/24/23 01:12 Pulse Ox 99 10/24/23 01:12 FiO2 Intake & Output 10/23/23 10/24/23 10/24/23 18:59 06:59 18:59 Intake Total 1050 Output Total 435 1350 Balance 615 -1350 Intake: IV 1050 Output: Urine 335 1350 Uretheral (Posadas) 1350 Estimated Blood Loss 100 Other: Voiding Method Indwelling Catheter Indwelling Catheter - Exam Vital signs are stable. Patient is in no acute distress and is alert and oriented 3. Calf is soft and nontender to palpation. Dressing is clean, dry, and intact. Patient has full foot and ankle motion without pain or difficulty. Sensation intact. Neurovascular status and circulatory status are intact. - Labs CBC & Chem 7: 10/23/23 05:57 10/23/23 05:57 Labs: Abnormal Lab Results - Last 24 Hours (Table) 10/23/23 10/23/23 Range/Units 05:57 05:57 WBC 10.84 H (4.50-10.00) X 10*3/uL RBC 3.38 L (4.10-5.20) X 10*6/uL Hgb 10.5 L (12.0-15.0) g/dL Hct 32.4 L (37.2-46.3) % Neutrophils # 7.84 H (1.80-7.70) X 10*3/uL Eosinophils # 0.01 L (0.04-0.35) X 10*3/uL BUN/Creatinine Ratio 28.33 H (12.00-20.00) Ratio Glucose 127 H (70-110) mg/dL Assessment and Plan Assessment: Status post closed reduction and intramedullary nailing of left intertrochanteric hip fracture. (1) Intertrochanteric fracture of left hip Current Visit: Yes Status: Acute Code(s): S72.142A - DISPLACED INTERTROCHANTERIC FRACTURE OF LEFT FEMUR, INIT SNOMED Code(s): 258359084 Plan: Continue routine postop care and pain control. Continue anticoagulation with Xarelto. Weightbearing as tolerated with a walker. Leave dressing in place for 7 days. Appreciate input from internal medicine. Anticipate discharge to ECF in the next 24-48 hours.
[2023-10-24 10:27] LABS: HCT 27.1 % (37.2-46.3); HGB 8.7 g/dL (12.0-15.0); MCH 31.2 pg (27.0-32.0); MCHC 32.1 g/dL (32.0-37.0); MCV 97.1 FL (80.0-97.0); Mean Platelet Volume 9.8 FL (9.5-12.2); NRBC Per 100 WBC 0 X 10*3/uL (0.00-0.01); Platelet Count 206 X 10*3/uL (140-440); RBC 2.79 X 10*6/uL (4.10-5.20); RDW 12.7 % (11.5-14.5); WBC 10.33 X 10*3/uL (4.50-10.00)
[2023-10-24 10:28] LABS: Basophils # (A) 0.01 X 10*3/uL (0.00-0.10); Basophils % (A) 0.1 %; Eosinophils # (A) 0 X 10*3/uL (0.04-0.35); Eosinophils % (A) 0 %; Lymphocytes # (A) 1.82 X 10*3/uL (0.90-5.00); Lymphocytes % (A) 17.6 %; Monocytes # (A) 1.06 X 10*3/uL (0.20-1.00); Monocytes % (A) 10.3 %; Neutrophils # (A) 7.41 X 10*3/uL (1.80-7.70); Neutrophils % (A) 71.7 %
[2023-10-24] MEDS: HYDROcodone/APAP 7.5-325MG 1 EACH TAB PO PRN (10:33)
[2023-10-24] MEDS: RIVAROXABAN 20 MG TAB PO SCH (20:19)
--- NOTE | 2023-10-25 06:13 | P.PN ---
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 No other visual injury at the time can be seen she is on anticoagulation for A-fib with no major hematoma or bleed. Ended up coming to the emergency department where was seen and evaluated with her full study including head and cervical spine CT shows no acute intracranial process no evidence of cervical spine fracture but mild multilevel degenerative disc disease. Chest x-ray shows no acute cardiopulmonary disease or process at the time, x-ray of the hip shows acute left intratrochanteric communicated fracture with mild displacement and severe degenerative change of the hip bilaterally with osteophyte formation and joint space narrowing. Patient apparently was admitted to Dr. Valladares service will be seen by orthopedic for possible surgery she is on active anticoagulation which will be held for the next 24 hours before able to go for surgery. 10/24/2023: She is lying in bed in quite the pain still have Posadas catheter and she had ORIF of the hip with Dr. Barclay procedure seems to go well but patient is not quite with pain currently. Has low-grade anemia after surgery with hemoglobin down to 8.7 does not require any transfusion electrolytes still with no abnormality. Hopefully will titrate physical therapy gradually or close allowing her to put full pressure on the hip after her nailing of left intertrochanteric fracture which she does do well with physical therapy continue pain management continue anticoagulation with Xarelto. Patient possibly expected to go to SNF in the next day or 2. REVIEW OF SYSTEMS: CONSTITUTIONAL: Well-developed no acute respiratory distress. EYES: No icterus sclerae, no conjunctivitis. EARS, NOSE, MOUTH, THROAT, and FACE: No sore throat, lymphadenopathy, carotid bruits or deformity. RESPIRATORY: Mild shortness of breath no cough or wheezes. CARDIOVASCULAR: Positive PND orthopnea palpitation. GASTROINTESTINAL: No Abd pain, Nausea or vomiting, no Diarrhea or constipation, No GI Bleed, no distention or masses. GENITOURINARY: Negative for Hematuria or UTI, no kidney stones. INTEGUMENT/BREAST: Generalized arthralgia and myalgia. HEMATOLOGIC/LYMPHATIC: Negative for bleed or purpura. MUSCULOSKELTAL: Positive for arthritis. Left hip has external rotation and significant pain and discomfort. NEURLOGICAL: No LOC, Sz or syncope, blurred vision dizziness or abnormality.. BEHAVIORAL/PSYCH: Negative. ENDOCRINE: Negative. PHYSICAL EXAMINATION: General Appearance: Alert, cooperative, no distress, appears stated age. Neck HEENT: Supple, no lymphadenopathy, no thyroid enlargement, no carotid bruits. Lungs: Decreased breath sound bilaterally with fine rhonchi no crackles or wheezes. Chest Wall: Decreased with deep inspiration no tenderness and no deformity was found on exam, no costochondral pain or discomfort. Heart: Regular rate and rhythm, S1, S2, positive S3 no JVD. Normal, no murmur, rub or gallop. Back: Symmetric, no curvature, ROM normal, no CVA tenderness. Abdomen: Soft, non-tender, bowel sounds active all four quadrants, no masses, no organomegaly. Extremities: Generalized arthralgia all over left hip has significant external r otation shorter leg compared to the other side significant pain and discomfort in the groin area. Pulses: 2+ and symmetric. Skin: Skin color, texture, tugor normal, no rashes or lesions. Neurologic: Alert oriented x3 cranial nerves II through XII intact, no motor deficit, no abnormal balance or gait. ASSESSMENT AND PLAN: _Left hip fracture post fall: Post ORIF with nailing of the left intertrochanteric fracture seems to do well so far except her pain. _History of A-fib she is not in active A-fib with her current EKG but remain on metoprolol and Xarelto 20 mg a day resume medication. _Hypertension: Blood pressure is well-controlled continue losartan and Toprol-XL . _Pain management: Continue hydrocodone and try to avoid hydromorphone. _Hyperlipidemia: Continue Lipitor 20 mg a day. _Chronic depression has been on Cymbalta 30 mg twice a day. _Hyperlipidemia: Resume atorvastatin 20 mg a day. _Chronic neuropathy: Has been on gabapentin 600 mg twice a day. _Mild electrolyte imbalance with mild hypokalemia replacement therapy will be done. _Hyperglycemia with no official diagnosis of diabetes Accu-Chek with sliding scales will be done. _Mild COPD/reactive airway: Still on rescue inhaler will continue updraft treatment and O2 on as-needed basis. _DVT prophylaxis: Patient will continue on Xarelto. _Mobility titrate physical therapy remove Posadas catheter and hopefully patient up with help and prepare hopefully for ECF or SNF in the next 24 hours. Objective - Vital Signs Vital signs: Vital Signs Temp 98.2 F 10/24/23 01:12 Pulse 87 10/24/23 01:12 Resp 16 10/24/23 01:12 BP 140/49 10/24/23 01:12 Pulse Ox 99 10/24/23 01:12 FiO2 Intake & Output 10/23/23 10/23/23 10/24/23 06:59 18:59 06:59 Intake Total 1050 Output Total 958 211 0304 Balance -350 615 -1350 Weight 81.647 kg Intake: IV 1050 Output: Urine 521 704 8815 Uretheral (Posadas) 1350 Estimated Blood Loss 100 Other: Voiding Method Indwelling Catheter Indwelling Catheter - Labs CBC & Chem 7: 10/24/23 06:04 10/23/23 05:57 Labs: Abnormal Lab Results - Last 24 Hours (Table) 10/23/23 10/23/23 Range/Units 05:57 05:57 WBC 10.84 H (4.50-10.00) X 10*3/uL RBC 3.38 L (4.10-5.20) X 10*6/uL Hgb 10.5 L (12.0-15.0) g/dL Hct 32.4 L (37.2-46.3) % Neutrophils # 7.84 H (1.80-7.70) X 10*3/uL Eosinophils # 0.01 L (0.04-0.35) X 10*3/uL BUN/Creatinine Ratio 28.33 H (12.00-20.00) Ratio Glucose 127 H (70-110) mg/dL
--- NOTE | 2023-10-25 07:35 | P.PN ---
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 No other visual injury at the time can be seen she is on anticoagulation for A-fib with no major hematoma or bleed. Ended up coming to the emergency department where was seen and evaluated with her full study including head and cervical spine CT shows no acute intracranial process no evidence of cervical spine fracture but mild multilevel degenerative disc disease. Chest x-ray shows no acute cardiopulmonary disease or process at the time, x-ray of the hip shows acute left intratrochanteric communicated fracture with mild displacement and severe degenerative change of the hip bilaterally with osteophyte formation and joint space narrowing. Patient apparently was admitted to Dr. Valladares service will be seen by orthopedic for possible surgery she is on active anticoagulation which will be held for the next 24 hours before able to go for surgery. 10/24/2023: She is lying in bed in quite the pain still have Posadas catheter and she had ORIF of the hip with Dr. Barclay procedure seems to go well but patient is not quite with pain currently. Has low-grade anemia after surgery with hemoglobin down to 8.7 does not require any transfusion electrolytes still with no abnormality. Hopefully will titrate physical therapy gradually or close allowing her to put full pressure on the hip after her nailing of left intertrochanteric fracture which she does do well with physical therapy continue pain management continue anticoagulation with Xarelto. Patient possibly expected to go to SNF in the next day or 2. 10/25/2023: Patient is doing very well she has done some physical therapy, able to ambulate with a walker still having quite the pain. Patient does live home alone a consult for physiatry at [facility] to do inpatient rehab in progress if that fails patient will be possibly going to SNF with rehab. Otherwise she is doing well hemodynamically stable no chest pain or angina, vitals are pretty normal her white blood cell is normal hemoglobin dropped down slight bit but does not require transfusion. Pain is well-managed currently with hydrocodone. Expected probably discharge today. REVIEW OF SYSTEMS: CONSTITUTIONAL: Well-developed no acute respiratory distress. EYES: No icterus sclerae, no conjunctivitis. EARS, NOSE, MOUTH, THROAT, and FACE: No sore throat, lymphadenopathy, carotid bruits or deformity. RESPIRATORY: Mild shortness of breath no cough or wheezes. CARDIOVASCULAR: Positive PND orthopnea palpitation. GASTROINTESTINAL: No Abd pain, Nausea or vomiting, no Diarrhea or constipation, No GI Bleed, no distention or masses. GENITOURINARY: Negative for Hematuria or UTI, no kidney stones. INTEGUMENT/BREAST: Generalized arthralgia and myalgia. HEMATOLOGIC/LYMPHATIC: Negative for bleed or purpura. MUSCULOSKELTAL: Positive for arthritis. Left hip has external rotation and significant pain and discomfort. NEURLOGICAL: No LOC, Sz or syncope, blurred vision dizziness or abnormality.. BEHAVIORAL/PSYCH: Negative. ENDOCRINE: Negative. PHYSICAL EXAMINATION: General Appearance: Alert, cooperative, no distress, appears stated age. Neck HEENT: Supple, no lymphadenopathy, no thyroid enlargement, no carotid bruits. Lungs: Decreased breath sound bilaterally with fine rhonchi no crackles or wheezes. Chest Wall: Decreased with deep inspiration no tenderness and no deformity was found on exam, no costochondral pain or discomfort. Heart: Regular rate and rhythm, S1, S2, positive S3 no JVD. Normal, no murmur, rub or gallop. Back: Symmetric, no curvature, ROM normal, no CVA tenderness. Abdomen: Soft, non-tender, bowel sounds active all four quadrants, no masses, no organomegaly. Extremities: Generalized arthralgia all over left hip has significant external rotation shorter leg compared to the other side significant pain and discomfort in the groin area. Pulses: 2+ and symmetric. Skin: Skin color, texture, tugor normal, no rashes or lesions. Neurologic: Alert oriented x3 cranial nerves II through XII intact, no motor deficit, no abnormal balance or gait. ASSESSMENT AND PLAN: _Left hip fracture post fall: Post ORIF with nailing of the left intertrochanteric fracture seems to do well so far except her pain. Titrate physical therapy with either physiatry inpatient rehab or SNF. _History of A-fib she is not in active A-fib with her current EKG but remain on metoprolol and Xarelto 20 mg a day resume medication. Pulse rate is well-c ontrolled. _Hypertension: Blood pressure is well-controlled continue losartan and Toprol- XL. Blood pressure running in the 120-100 30s systolic. _Pain management: Continue hydrocodone and try to avoid hydromorphone. Avoid ibuprofen with her hydrocodone can use acetaminophen as needed. _Hyperlipidemia: Continue Lipitor 20 mg a day. _Chronic depression has been on Cymbalta 30 mg twice a day. _Hyperlipidemia: Resume atorvastatin 20 mg a day. _Chronic neuropathy: Has been on gabapentin 600 mg twice a day. _Mild electrolyte imbalance with mild hypokalemia replacement therapy will be done. _Hyperglycemia with no official diagnosis of diabetes Accu-Chek with sliding scales will be done. _Mild COPD/reactive airway: Still on rescue inhaler will continue updraft treatment and O2 on as-needed basis. _DVT prophylaxis: Patient will continue on Xarelto. _Prognosis: Very good. Discharge expectation: Patient be doing more physical therapy today and probably will be going to either inpatient rehab or alf rehab today. Objective - Vital Signs Vital signs: Vital Signs Temp 98.3 F 10/25/23 01:55 Pulse 99 10/25/23 01:55 Resp 17 10/25/23 01:55 BP 121/53 10/25/23 01:55 Pulse Ox 95 10/25/23 01:55 FiO2 Intake & Output 10/24/23 10/24/23 10/25/23 06:59 18:59 06:59 Output Total 1350 3460 Balance -1350 -3460 Output: Urine 1350 3460 Uretheral (Posadas) 1350 Other: Voiding Method Indwelling Catheter Indwelling Catheter # Voids 2 - Labs CBC & Chem 7: 10/24/23 06:04 10/23/23 05:57 Labs: Abnormal Lab Results - Last 24 Hours (Table) 10/24/23 Range/Units 06:04 WBC 10.33 H (4.50-10.00) X 10*3/uL RBC 2.79 L (4.10-5.20) X 10*6/uL Hgb 8.7 L (12.0-15.0) g/dL Hct 27.1 L (37.2-46.3) % MCV 97.1 H (80.0-97.0) FL Monocytes # 1.06 H (0.20-1.00) X 10*3/uL Eosinophils # 0 L (0.04-0.35) X 10*3/uL
[2023-10-25] MEDS: HYDROcodone/APAP 7.5-325MG 1 EACH TAB PO PRN (11:20)
--- NOTE | 2023-10-25 14:16 | P.PN ---
Subjective Progress Note Date: 10/25/23 This is a 73-year-old fe male who is status post closed reduction and intramedullary nailing of left intertrochanteric hip fracture. This is postoperative day #2 and patient is seen and evaluated at bedside today. Patient states that she is still painful, but has been able to work with [employer]. Patient denies any new complaints today. Objective - Vital Signs Vital signs: Vital Signs Temp 98.4 F 10/25/23 07:16 Pulse 92 10/25/23 11:37 Resp 18 10/25/23 11:37 BP 142/66 10/25/23 07:16 Pulse Ox 95 10/25/23 07:16 FiO2 Intake & Output 10/24/23 10/25/23 10/25/23 18:59 06:59 18:59 Intake Total 550 Output Total 3460 Balance -3460 550 Intake: Oral 550 Output: Urine 3460 Other: Voiding Method Indwelling Catheter Indwelling Catheter # Voids 2 - Exam Vital signs are stable. Patient is in no acute distress and is alert and oriented 3. Calf is soft and nontender to palpation. Dressing is clean, dry, and intact. Patient has full foot and ankle motion without pain or difficulty. Sensation intact. Neurovascular status and circulatory status are intact. - Labs CBC & Chem 7: 10/24/23 06:04 10/23/23 05:57 Assessment and Plan Assessment: Status post closed reduction and intramedullary nailing of left intertrochanteric hip fracture. (1) Intertrochanteric fracture of left hip Current Visit: Yes Status: Acute Code(s): S72.142A - DISPLACED INTERTROCHANTERIC FRACTURE OF LEFT FEMUR, INIT SNOMED Code(s): 207108886 Plan: Continue routine postop care and pain control. Continue anticoagulation with Xarelto. Weightbearing as tolerated with a walker. Leave dressing in place for 7 days. Appreciate input from internal medicine. Anticipate discharge to [facility] tomorrow.
[2023-10-26 09:31] VITALS: BP 143/67; PULSE 96; RESP 16; TEMP 99.5
--- NOTE | 2023-10-26 10:10 | XR ---
EXAMINATION TYPE: XR chest 1V portable DATE OF EXAM: 10/26/2023 9:56 AM CLINICAL INDICATION:Female, 73 years old with history of cough; [facility] COMPARISON: Chest radiographs from TECHNIQUE: XR chest 1V portable Frontal view of the chest. FINDINGS: Lungs/Pleura: Right midlung streaky atelectasis. There is no evidence of pleural effusion, focal cons olidation, or pneumothorax. Pulmonary vascularity: Unremarkable. Heart/mediastinum: Cardiomediastinal silhouette is unremarkable. Musculoskeletal: No acute osseous pathology. IMPRESSION: No acute cardiopulmonary disease/process.
[2023-10-26 10:22] LABS: Basophils # (A) 0.03 X 10*3/uL (0.00-0.10); Basophils % (A) 0.4 %; Eosinophils # (A) 0.38 X 10*3/uL (0.04-0.35); Eosinophils % (A) 4.5 %; HCT 26.9 % (37.2-46.3); HGB 8.7 g/dL (12.0-15.0); Lymphocytes # (A) 2.36 X 10*3/uL (0.90-5.00); Lymphocytes % (A) 27.8 %; MCH 31.3 pg (27.0-32.0); MCHC 32.3 g/dL (32.0-37.0); MCV 96.8 FL (80.0-97.0); Mean Platelet Volume 9.8 FL (9.5-12.2); Monocytes # (A) 1.01 X 10*3/uL (0.20-1.00); Monocytes % (A) 11.9 %; NRBC Per 100 WBC 0 X 10*3/uL (0.00-0.01); Neutrophils # (A) 4.69 X 10*3/uL (1.80-7.70); Platelet Count 233 X 10*3/uL (140-440); RBC 2.78 X 10*6/uL (4.10-5.20); RDW 12.5 % (11.5-14.5)
[2023-10-26 11:37] LABS: Appearance,Urine Clear (Clear); Bilirubin,Urine Negative (Negative); Blood,Urine Negative (Negative); Color,Urine Light Yellow; Glucose,Urine (UA) Negative (Negative); Ketones,Urine Negative (Negative); Leukocyte Esterase,Urine Moderate (Negative); Mucus,Urine Rare /hpf; Nitrite,Urine Negative (Negative); Protein,Urine Negative (Negative); RBC,Urine 3 /hpf (0-5); Specific Gravity,Urine 1.018 (1.001-1.035); Squamous Epithelial Cell,Urine 1 /hpf (0-4); Urobilinogen,Urine <2.0 mg/dL (<2.0); WBC,Urine 2 /hpf (0-5)
--- NOTE | 2023-10-26 12:07 | P.DS ---
Providers Date of admission: 10/22/23 20:12 Expected date of discharge: 10/26/23 Attending physician: Pierre Barclay Consults: 10/22/23 20:09 Consult Physician Routine Consulting Provider: Melvin Camp Consult Reason/Comments: [facility]manage Do you want consulting provider notified?: Yes 10/24/23 14:03 Consult Physician Routine Consulting Provider: Ham Wei Reason/Comments: evaluate for inpatient rehab Do you want consulting provider notified?: Yes Primary care physician: Jacquelyn Moncadao - Discharge Diagnosis(es) (1) Left hip pain Current Visit: Yes Status: Acute (2) COPD (chronic obstructive pulmonary disease) Current Visit: Yes Status: Acute (3) Atrial fibrillation Current Visit: Yes Status: Acute (4) Closed left hip fracture Current Visit: Yes Status: Acute (5) Fall Current Visit: Yes Status: Acute (6) Hyperlipidemia Current Visit: Yes Status: Acute (7) Hypertension Current Visit: Yes Status: Acute (8) Intertrochanteric fracture of left hip Current Visit: Yes Status: Acute Hospital Course: This is a pleasant 73-year-old female who presented with left intertrochanteric hip fracture status post fall. She was admitted for closed reduction and intramedullary nail fixation for left intertrochanteric hip fracture. The patient tolerated the procedure well and did well postoperatively. She has been working with physical therapy. She has been utilizing a walker to aid in amb ulation. She is weight-bear as tolerated on the left lower extremity. She is currently planning for discharge to rehabilitation facility today. Patient was previously cleared for surgical intervention by medicine. Patient currently denies any nausea, vomiting, fever, or chills. Patient is eating and voiding freely without difficulty. Patient may shower Tegaderm dressing intact. Patient may remove Tegaderm dressing in 3 days and shower without a dressing at that time. Patient should refrain from driving until at least after their first follow-up appointment in the office. Patient weight- bear as tolerated on the left lower extremity with the assistance of a walker. Patient may use ice over the left hip for comfort and support as needed. MAPS was previously reviewed. An "Opiod Start Talking" Form has been signed and placed in the patient's chart. A prescription has been written for hydrocodone 7.5 mg / 325 mg, 1-2 tabs every 6 hours as needed for acute pain, dispense #32. Prescription has been signed and placed in the patient's chart for discharge. Patient will continue with Xarelto for anticoagulation postoperatively. Patient's other medical diagnoses include atrial fibrillation, hypertension, hyperlipidemia, chronic neuropathy, mild COPD, and chronic depression. Patient is being seen and examined by medicine. Patient will need clearance by medicine prior to discharge. Physical Exam Intramedullary Rodding for Intertrochanteric Fracture: Status post surgical day number 3 Patient is examined lying in bed Patient is awake and alert, and oriented 3 Vital signs stable No signs or symptoms of DVT; no calf pain Lower extremity cuffs not currently in place bilaterally Dressing of the left hip is clean, dry, and intact; no erythema, purulence, or signs of infection No pain with palpation over the surgical sites Generalized swelling around the left lower extremity Full range of motion of ankles bilaterally Dorsiflexion, plantarflexion, and extensor hallucis longus positive sustained on the left Neurovascularly intact bilateral lower extremities Procedures: Left intramedullary nail fixation for left intertrochanteric hip fracture Patient Condition at Discharge: Stable Plan - Discharge Summary Discharge Rx Participant: No New Discharge Prescriptions: New Sennosides [Senokot] 2 tab PO DAILY PRN #60 tablet PRN Reason: Constipation hydrALAZINE HCL [Apresoline] 25 mg PO QID PRN tab PRN Reason: Blood Pressure - High Benzocaine/Menthol Lozeng [Cepacol lozenge] 1 each MUCOUS MEM Q4HR PRN lozenge PRN Reason: Sore Throat HYDROcodone/APAP 7.5-325MG [Munday 7.5-325] 1 - 2 tab PO Q6H PRN #32 tab PRN Reason: Pain Magnesium Hydroxide [Milk of Magnesia] 2,400 mg PO DAILY PRN ml PRN Reason: Constipation Continue Atorvastatin [Lipitor] 20 mg PO DAILY DULoxetine HCL [Cymbalta] 30 mg PO BID Loratadine [Claritin] 10 mg PO DAILY Metoprolol Succinate (ER) [Toprol XL] 25 mg PO DAILY Ubidecarenone [Co Q-10] 400 mg PO DAILY Calcium/Magnesium(Unknown Dose) 1 tab PO HS Psyllium Husk 750mg 750 mg PO DAILY Albuterol Inhaler [Ventolin Hfa Inhaler] 1 - 2 puff INHALATION RT-QID PRN PRN Reason: Shortness Of Breath Cholecalciferol (Vitamin D3) [Vitamin D3 (1250 Mcg = 50,000 Iu)] 1,250 mcg PO NAVA Gabapentin 600 mg PO BID Losartan Potassium 100 mg PO DAILY Pantoprazole Sodium [Protonix] 20 mg PO BID Rivaroxaban [Xarelto] 20 mg PO HS Vitamin B Complex 1 cap PO DAILY Discharge Medication List Albuterol Inhaler [Ventolin Hfa Inhaler] 1 - 2 puff INHALATION RT-QID PRN 10/22/23 [History] Atorvastatin [Lipitor] 20 mg PO DAILY 10/22/23 [History] Calcium/Magnesium(Unknown Dose) 1 tab PO HS 10/22/23 [History] Cholecalciferol (Vitamin D3) [Vitamin D3 (1250 Mcg = 50,000 Iu)] 1,250 mcg PO NAVA 10/22/23 [History] DULoxetine HCL [Cymbalta] 30 mg PO BID 10/22/23 [History] Gabapentin 600 mg PO BID 10/22/23 [History] Loratadine [Claritin] 10 mg PO DAILY 10/22/23 [History] Losartan Potassium 100 mg PO DAILY 10/22/23 [History] Metoprolol Succinate (ER) [Toprol XL] 25 mg PO DAILY 10/22/23 [History] Pantoprazole Sodium [Protonix] 20 mg PO BID 10/22/23 [History] Psyllium Husk 750mg 750 mg PO DAILY 10/22/23 [History] Rivaroxaban [Xarelto] 20 mg PO HS 10/22/23 [History] Ubidecarenone [Co Q-10] 400 mg PO DAILY 10/22/23 [History] Vitamin B Complex 1 cap PO DAILY 10/22/23 [History] HYDROcodone/APAP 7.5-325MG [Munday 7.5-325] 1 - 2 tab PO Q6H PRN #32 tab 10/24/23 [Rx] Sennosides [Senokot] 2 tab PO DAILY PRN #60 tablet 10/24/23 [Rx] Benzocaine/Menthol Lozeng [Cepacol lozenge] 1 each MUCOUS MEM Q4HR PRN lozenge 10/26/23 [Rx] Magnesium Hydroxide [Milk of Magnesia] 2,400 mg PO DAILY PRN ml 10/26/23 [Rx] hydrALAZINE HCL [Apresoline] 25 mg PO QID PRN tab 10/26/23 [Rx] Follow up Appointment(s)/Referral(s): Aydee Livingston PAC [PHYSICIAN LIBRARY SERIALS ASSISTANT] - 2 Weeks (Patient may follow-up with Aydee Livingston PA-C or Dr. Pierre Barclay at [facility] in 2-3 weeks following discharge. ) Jacquelyn Hough MD [Primary Care Provider] - 1-2 days [facility] Visiting Nurse, [NON-STAFF] - 1-2 Days ([facility] will call you to schedule your in home nursing, physical therapy, and occupational therapy visits. ) Activity/Diet/Wound Care/Special Instructions: Weightbearing as tolerated with walker. Leave dressing intact. Dressing may be removed by home care nurse or by patient in 7 days. Then change dressing twice daily until follow up. May shower with initial dressing intact and after removal. If dressing become saturated, please remove. Please resume Xarelto. Recommend use of compression stockings daily until follow up to help prevent swelling and blood clots. May remove at night before sleeping. Please follow-up with [facility] in 2 weeks and call with any questions or concerns, . Discharge/Stand Alone Forms: AA Meetings [place], [facility], In Substance Abuse Facilities Discharge Disposition: TRANSFER TO SNF/ECF
--- NOTE | 2023-10-26 13:07 | P.PN ---
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 No other visual injury at the time can be seen she is on anticoagulation for A-fib with no major hematoma or bleed. Ended up coming to the emergency department where was seen and evaluated with her full study including head and cervical spine CT shows no acute intracranial process no evidence of cervical spine fracture but mild multilevel degenerative disc disease. Chest x-ray shows no acute cardiopulmonary disease or process at the time, x-ray of the hip shows acute left intratrochanteric communicated fracture with mild displacement and severe degenerative change of the hip bilaterally with osteophyte formation and joint space narrowing. Patient apparently was admitted to Dr. Valladares service will be seen by orthopedic for possible surgery she is on active anticoagulation which will be held for the next 24 hours before able to go for surgery. 10/24/2023: She is lying in bed in quite the pain still have Posadas catheter and she had ORIF of the hip with Dr. Barclay procedure seems to go well but patient is not quite with pain currently. Has low-grade anemia after surgery with hemoglobin down to 8.7 does not require any transfusion electrolytes still with no abnormality. Hopefully will titrate physical therapy gradually or close allowing her to put full pressure on the hip after her nailing of left intertrochanteric fracture which she does do well with physical therapy continue pain management continue anticoagulation with Xarelto. Patient possibly expected to go to SNF in the next day or 2. 10/25/2023: Patient is doing very well she has done some physical therapy, able to ambulate with a walker still having quite the pain. Patient does live home alone a consult for physiatry at [facility] to do inpatient rehab in progress if that fails patient will be possibly going to SNF with rehab. Otherwise she is doing well hemodynamically stable no chest pain or angina, vitals are pretty normal her white blood cell is normal hemoglobin dropped down slight bit but does not require transfusion. Pain is well-managed currently with hydrocodone. Expected probably discharge today. 10/26/2023: She is doing very well she still have slight bit of problem with mobility at this point the pain is slightly better controlled. She was evaluated by physiatry for inpatient rehab at [facility] and will be discharged to [facility] today. She is complaining of low-grade temperature this morning will run UA chest x-ray and her blood test will watch incision has been clear with no sign of infection. The patient is stable to be discharged today 10/26/2023 to inpatient rehab. REVIEW OF SYSTEMS: CONSTITUTIONAL: Well-developed no acute respiratory distress. EYES: No icterus sclerae, no conjunctivitis. EARS, NOSE, MOUTH, THROAT, and FACE: No sore throat, lymphadenopathy, carotid bruits or deformity. RESPIRATORY: Mild shortness of breath no cough or wheezes. CARDIOVASCULAR: Positive PND orthopnea palpitation. GASTROINTESTINAL: No Abd pain, Nausea or vomiting, no Diarrhea or constipation, No GI Bleed, no distention or masses. GENITOURINARY: Negative for Hematuria or UTI, no kidney stones. INTEGUMENT/BREAST: Generalized arthralgia and myalgia. HEMATOLOGIC/LYMPHATIC: Negative for bleed or purpura. MUSCULOSKELTAL: Positive for arthritis. Left hip has external rotation and significant pain and discomfort. NEURLOGICAL: No LOC, Sz or syncope, blurred vision dizziness or abnormality.. BEHAVIORAL/PSYCH: Negative. ENDOCRINE: Negative. PHYSICAL EXAMINATION: General Appearance: Alert, cooperative, no distress, appears stated age. Neck HEENT: Supple, no lymphadenopathy, no thyroid enlargement, no carotid bruits. Lungs: Decreased breath sound bilaterally with fine rhonchi no crackles or wheezes. Chest Wall: Decreased with deep inspiration no tenderness and no deformity was found on exam, no costochondral pain or discomfort. Heart: Regular rate and rhythm, S1, S2, positive S3 no JVD. Normal, no murmur, rub or gallop. Back: Symmetric, no curvature, ROM normal, no CVA tenderness. Abdomen: Soft, non-tender, bowel sounds active all four quadrants, no masses, no organomegaly. Extremities: Generalized arthralgia all over left hip has significant external rotation shorter leg compared to the other side significant pain and discomfort in the groin area. Pulses: 2+ and symmetric. Skin: Skin color, texture, tugor normal, no rashes or lesions. Neurologic: Alert oriented x3 cranial nerves II through XII intact, no motor deficit, no abnormal balance or gait. ASSESSMENT AND PLAN: _Left hip fracture post fall: Post ORIF with nailing of the left intertrochanteric fracture seems to do well so far except her pain. Patient be going to inpatient rehab continue pain management continue to watch patient hemodynamic status carefully. _History of A-fib she is not in active A-fib with her current EKG but remain on metoprolol and Xarelto 20 mg a day resume medication. Pulse rate is well- controlled. _Hypertension: Blood pressure is well-controlled continue losartan and Toprol- XL. Blood pressure running in the 120-100 30s systolic. _Low-grade temperature: Does not exceed 100 Fahrenheit patient CBC, chest x-ray and UA are negative this probably from the inflammation related to her surgery. Continue to watch for any source of infection over time. _Pain management: Continue hydrocodone and try to avoid hydromorphone. Avoid ibuprofen with her hydrocodone can use acetaminophen as needed. _Hyperlipidemia: Continue Lipitor 20 mg a day. _Chronic depression has been on Cymbalta 30 mg twice a day. _Hyperlipidemia: Resume atorvastatin 20 mg a day. _Chronic neuropathy: Has been on gabapentin 600 mg twice a day. _Mild electrolyte imbalance with mild hypokalemia replacement therapy will be done. _Hyperglycemia with no official diagnosis of diabetes Accu-Chek with sliding scales will be done. _Mild COPD/reactive airway: Still on rescue inhaler will continue updraft treatment and O2 on as-needed basis. _DVT prophylaxis: Patient will continue on Xarelto. _Prognosis: Very good. Discharge expectation: Patient be discharged to inpatient rehab today. Objective - Vital Signs Vital signs: Vital Signs Temp 99.2 F 10/26/23 03:00 Pulse 89 10/26/23 02:43 Resp 18 10/26/23 02:43 BP 126/72 10/26/23 02:43 Pulse Ox 94 L 10/26/23 02:43 FiO2 Intake & Output 10/25/23 10/26/23 10/26/23 18:59 06:59 18:59 Intake Total 850 Output Total 50 Balance 800 Intake: Oral 850 Output: Urine 50 Other: Voiding Method Indwelling Catheter Toilet # Voids 2 2 - Labs CBC & Chem 7: 10/26/23 06:29 10/23/23 05:57
[2023-10-28] MEDS ORDERED: ERGOCALCIFEROL 1,250 MCG (50,000 IU) CAPSULE PO SCH (09:00)
--- NOTE | 2023-11-02 10:36 | CDI ---
Documentation Clarification Form Date: 11/02/2023 10:05:07 AM From: Rossana Thompson RN, CCDS Phone: [phone] Admit Date: 10/22/2023 08:12:00 PM Patient Name: Maeve Gorman Visit Number: [id number] Discharge Date: 10/26/2023 02:39:00 PM ATTENTION: The Clinical Documentation Specialists (CDI) and [facility] Coding Staff appreciate your assistance in clarifying documentation. Please respond to the clarification below the line at the bottom and electronically sign. The CDI & [facility] Coding staff will review the response and follow-up if needed. Please note: Queries are made part of the Legal Health Record. If you have any questions, please contact the author of this message via ITS. Dr. Melvin Camp Low-grade anemia is documented in the progress notes. Additional specificity regarding the type and acuity of anemia is requested. History/Risk Factors: A fib, HLD and HTN. Presented after trip and fall. Admitted with intertrochanteric fracture of left hip, s/p closed reduction and intramedullary nailing on 10/22. Clinical indicators: 10/23 IM: "Respiratory: mild shortness of breath, no cough or wheezes. Has low- grade anemia after surgery with hemoglobin down to 8.7, does not require any transfusion." 10/21 Hemoglobin: 12.0 10/21 Hematocrit: 36.7 10/25 Hemoglobin: 8.7 10/25 Hematocrit: 26.9 Treatment: monitor H/H; 1L LR IVF's during OR Please clarify the type and acuity of anemia: [ ] Acute blood loss anemia [ ] Unable to determine [ ] Other, please specify MTDD
== END 2023-10-26 14:39 | DRG 482 ==
LOC: EC 17:28 → 4SSUR 20:12
PROVIDERS: ADMIT Orthopaedic Surgery; ATTEND Orthopaedic Surgery
PROC: 0QS736Z Reposition Left Upper Femur with Intramedullary Internal Fixation Device, Percutaneous Approach (ICD-10-PCS; principal; 2023-10-23 08:45)
DX: S72.142A Displaced intertrochanteric fracture of left femur, initial encounter for closed fracture (principal); J44.9 Chronic obstructive pulmonary disease, unspecified; I48.91 Unspecified atrial fibrillation; I10 Essential (primary) hypertension; E78.5 Hyperlipidemia, unspecified; G89.29 Other chronic pain; E87.6 Hypokalemia; M54.50 Low back pain, unspecified; R73.9 Hyperglycemia, unspecified; W01.0XXA Fall on same level from slipping, tripping and stumbling without subsequent striking against object, initial encounter; Y92.012 Bathroom of single-family (private) house as the place of occurrence of the external cause; G62.9 Polyneuropathy, unspecified; F32.A Depression, unspecified; M50.30 Other cervical disc degeneration, unspecified cervical region; F41.9 Anxiety disorder, unspecified; E89.0 Postprocedural hypothyroidism; Z87.891 Personal history of nicotine dependence; Z88.8 Allergy status to other drugs, medicaments and biological substances; Z79.899 Other long term (current) drug therapy; Z79.01 Long term (current) use of anticoagulants
CPT/HCPCS: 36415; 70450; 71045; 72125; 72170; 73501; 73502; 80053; 80320; 81001; 83605; 83735; 84100; 84484; 85025; 85610; 85730; 93005; 94760; 96361; 96374; 96375; 99285